=== PATIENT | male | born 1930 | race Caucasian/White ===

== ENCOUNTER → 2017-02-15 | Outpatient (CLI) | payer MEDICARE, OTHER ==
[~2017-02-15] MED LIST: 'zithromax250 MG PO; ADVAIR 100/501 E1 INH; ADVAIR 250/501 EA INH; AMOXICILLIN500 MG PO; ASPIRIN FOR CHI81 MG PO; B12,B-12,B 12500 MC1 PO; BREO ELLIPTA 11 EACH IH; BRILINTA90 M1 PO; COMBIVENT RESPIM4 GM INH; COMBIVENT1 AR1 IH; COREG25 MG PO; COREG6.25 MG PO; CRESTOR PO; CRESTOR20 MG PO; DARVOCET N 1001 TAB PO; DULCOLAX5 M1 PO; ECOTRIN81 MG PO; FLOMAX0.4 MG PO; INCRUSE EL62.5 MCG/A IH; ISOSORBIDE30 MG PO; LISINOPRIL10 M1 PO; METOPROLOL SUCC50 M1 PO; NEXIUM40 MG PO; NITROSTAT0.4 MG SL; NORCO 5-325 TA1 EACH PO; NORVASC5 MG PO; PLAVIX75 M1 PO; PROTONIX40 MG PO; PYRIDIUM200 MG PO; RANEXA500 M1 PO; SIMVASTATIN20 MG PO; TOVIAZ4 MG PO; TOVIAZ8 MG PO; TYLENOL325 M1 PO; ZOCOR10 MG PO
== END | disposition home or self-care (01) ==
LOC: RAD 09:39
DX: M25.551 Pain in right hip (principal); M25.552 Pain in left hip; M54.5 Low back pain; M25.561 Pain in right knee; Z91.81 History of falling

== ENCOUNTER → 2017-03-11 | Outpatient (CLI) | payer MEDICARE, OTHER ==
[2017-03-11 16:50] LABS: BASO % 0.5 % (0.0-1.0); EOS % 0.2 % (1.0-4.0); HEMATOCRIT 44.5 % (42.0-52.0); HEMOGLOBIN 14.3 g/dl (14.0-18.0); IG # 0.1 10*3/uL (0.0-0.1); LYMPH # 3.6 10*3/uL (1.3-4.4); LYMPH % 44.2 % (27.0-41.0); MEAN CELL VOLUME 90.3 fl (80.0-94.0); MEAN CORPUSCULAR HGB CONC 32.1 g/dl (33.0-37.0); MEAN PLATELET VOLUME 11.3 fl (9.6-12.3); MONO # 0.5 10*3/uL (0.1-1.0); MONO % 5.8 % (3.0-9.0); NEUT % 48.7 % (47.0-73.0); PLATELET COUNT AUTOMATED 191 10*3/uL (130-400); RED BLOOD COUNT 4.93 10*6/uL (4.50-5.90); WHITE BLOOD COUNT 8.2 10*3/uL (4.8-10.8)
[2017-03-11 17:06] LABS: HEMOGLOBIN A1c 6.4 % (4.8-5.6)
[2017-03-11 17:09] LABS: ALBUMIN 3.7 gm/dl (3.1-4.5); BILIRUBIN, DIRECT 0.1 mg/dL (0.0-0.2); BILIRUBIN, TOTAL 0.3 mg/dl (0.2-1.0); POTASSIUM 4.3 mmol/L (3.5-5.1); TOTAL PROTEIN 7.3 gm/dL (6.4-8.2)
== END | disposition home or self-care (01) ==
LOC: LAB 16:31 → US 17:00
PROVIDERS: Family Medicine
DX: R10.9 Unspecified abdominal pain (principal); E11.9 Type 2 diabetes mellitus without complications; Z79.899 Other long term (current) drug therapy

== ENCOUNTER 2017-07-23 10:08 | Inpatient (IN) | payer MEDICARE, OTHER ==
[~2017-07-23] VITALS: Ht 180.3 cm; Wt 103.0 kg
--- NOTE | ~2017-07-23 | PR ---
[place], [place] PROGRESS NOTE NAME: EDWARD ARANGO UNIT #: [id number] ROOM: 422 DOCTOR: RODRIGO MENA MD BIRTHDATE: [birth year] DOS: ADDENDUM The patient was seen and examined by myself. Notes and labs were reviewed. Rhythm strips were reviewed. The patient appears to have atrial flutter/fibrillation with profound bradycardia, which indicates sick sinus syndrome. His echocardiogram was reviewed, which did not reveal any evidence of LV thrombus or any source of emboli. The possibility of stroke due to patient's atrial fibrillation is high. The patient needs to be on Coumadin versus NOACs or therapeutic to dose of Lovenox when there is no contraindication from the Neurology point of view. Fear of hemorrhagic conversion of his stroke in the acute phase. The patient, most likely, will be a candidate for pacemaker placement. A CardioNet will be considered should there be any recurrence of the profound bradycardic episode. Avoid any negative chronotropic agents for now. I will discuss this further in the morning with primary team. RODRIGO MENA MD CM:PNTRANS [id number] RODRIGO MENA MD 07/27/1747 interface
[2017-07-23 10:08] VITALS: BP 126/57
[2017-07-23 10:26] LABS: BASO % 0.2 % (0.0-1.0); HEMATOCRIT 45.4 % (42.0-52.0); HEMOGLOBIN 14.6 g/dl (14.0-18.0); LYMPH # 2.2 10*3/uL (1.3-4.4); LYMPH % 18.5 % (27.0-41.0); MEAN CELL VOLUME 89.7 fl (80.0-94.0); MEAN CORPUSCULAR HGB 28.9 pg (27.0-31.0); MEAN CORPUSCULAR HGB CONC 32.2 g/dl (33.0-37.0); MEAN PLATELET VOLUME 11.1 fl (9.6-12.3); MONO # 0.5 10*3/uL (0.1-1.0); MONO % 4.2 % (3.0-9.0); NEUT # 9.3 10*3/uL (2.3-7.9); NEUT % 76.8 % (47.0-73.0); PLATELET COUNT AUTOMATED 237 10*3/uL (130-400); RED BLOOD COUNT 5.06 10*6/uL (4.50-5.90); RED CELL DISTRI WIDTH 13.4 % (0-14.5); WHITE BLOOD COUNT 12.1 10*3/uL (4.8-10.8)
[2017-07-23 10:36] LABS: ACT PARTIAL THROMBO TIME 25.3 SECONDS (20.8-31.5); INTERNATIONAL NORM RATIO 1.1 (2.0-3.5)
[2017-07-23 10:46] LABS: ALBUMIN 3.7 gm/dl (3.1-4.5); ALKALINE PHOSPHATASE 50 U/L (45-117); BUN 22 mg/dl (7-24); CHLORIDE 104 mmol/L (98-107); CREATININE 1.33 mg/dL (0.70-1.30); LIPASE 79 U/L (73-393); SGOT/AST 10 IU/L (3-35); SGPT/ALT 13 U/L (12-78); SODIUM 139 mmol/L (136-145); TOTAL PROTEIN 7.4 gm/dL (6.4-8.2)
[2017-07-23 10:47] LABS: TROPONIN I < 0.015 ng/ml (<0.045)
[2017-07-23 11:00] VITALS: BP 114/64
--- NOTE | 2017-07-23 12:00 | NUR ---
PT WAS HELPED UP WITH 2 ASSIST. HE IS UNSTEADY ON HIS FEET AND NOT ABLE TO WALK WITHOUT HELP. HE COMPLAINS OF A HEADACHE AT THIS TIME. REMAINS ALERT. RETURNED TO BED WITH ASSIST. HE WILL BE ADMITTED,REPORT TO BE CALLED. WOUND TO RIGHT ELBOW AND FOREARM CLEANSED AND BACITRACIN,DRESSING APPLIED TO AREA. BRITTNEY DANGELO
[2017-07-23 12:30] VITALS: BP 126/77
--- NOTE | 2017-07-23 13:10 | NUR ---
A 86, admitted to , under the services of BRAULIO Arndt DO with a diagnosis of DIZZINESS,BRADYCARDIA,AC RENAL INSUFFICENCY. Chief complaint is DIZZINESS. Patient arrived via stretcher from ER. Monitor applied. Initial assessment completed. Vital signs taken and recorded. BRAULIO ARNDT DO notified of admission to the unit. Orders received. See assessment for past medical history, medications and allergies. Patient and/or family oriented to unit. [address] visitation policy reviewed. Clothing/patient valuable form completed. MAYNOR TOM
[2017-07-23 13:29] VITALS: BP 161/71
--- NOTE | 2017-07-23 13:30 | NUR ---
PHOTOS TAKEN OF RIGHT ARM
[2017-07-23] MEDS ORDERED: TOPROL XL25 MG PO (13:55)
[2017-07-23] MEDS ORDERED: TOPROL XL50 M1 PO (13:57)
[2017-07-23] MEDS ORDERED: VITAMIN D5000 UNI1 PO (14:00)
--- NOTE | 2017-07-23 14:00 | NUR ---
DAUGHTER PROVIDED MED LIST. CRISTINA CALLED PHARMACY CALLED TO VERIFIED HOME MEDS. PT GETS MAIL ORDER. SOME MEDS WERE VERIFIED. DR GEE NOTIFIED
[2017-07-23 16:00] VITALS: BP 157/66
[2017-07-23 16:27] LABS: BILIRUBIN NEGATIVE (NEGATIVE); BLOOD TRACE-INTACT (NEGATIVE); CLARITY CLEAR (CLEAR); COLOR YELLOW (YELLOW); GLUCOSE NEGATIVE (NEGATIVE); KETONE NEGATIVE (NEGATIVE); LEUKO ESTERASE NEGATIVE (NEGATIVE); NITRITE NEGATIVE (NEGATIVE); SPECIFIC GRAVITY 1.025 (1.005-1.030)
[2017-07-23 16:41] LABS: MUCOUS 1+
[2017-07-23 16:42] LABS: BACTERIA TRACE; WBC 0-2 wbc/hpf (0-5)
[2017-07-23 18:54] LABS: TROPONIN I 0.023 ng/ml (<0.045)
[2017-07-23 20:00] VITALS: BP 128/59
--- NOTE | 2017-07-23 21:00 | NUR ---
Patient resting quietly with no c/o discomfort. Respirations easy and regular. Vital signs stable. No overt distress. MAYNOR TOM R
[2017-07-24] VITALS: BP 130/58
--- NOTE | 2017-07-24 04:36 | NUR ---
Requested and medicated with [facility] at 0359 for complaints of JOHNSON and neck pain rated as an 8/10. Will continue to monitor.
[2017-07-24 05:50] LABS: BASO % 0.2 % (0.0-1.0); EOS % 0.1 % (1.0-4.0); HEMATOCRIT 40.8 % (42.0-52.0); LYMPH # 2.2 10*3/uL (1.3-4.4); LYMPH % 25.5 % (27.0-41.0); MEAN CELL VOLUME 90.3 fl (80.0-94.0); MEAN CORPUSCULAR HGB 28.8 pg (27.0-31.0); MEAN CORPUSCULAR HGB CONC 31.9 g/dl (33.0-37.0); MEAN PLATELET VOLUME 11.7 fl (9.6-12.3); MONO # 0.5 10*3/uL (0.1-1.0); MONO % 6.1 % (3.0-9.0); NEUT # 5.9 10*3/uL (2.3-7.9); NEUT % 67.6 % (47.0-73.0); PLATELET COUNT AUTOMATED 202 10*3/uL (130-400); RED BLOOD COUNT 4.52 10*6/uL (4.50-5.90); RED CELL DISTRI WIDTH 13.5 % (0-14.5); WHITE BLOOD COUNT 8.7 10*3/uL (4.8-10.8)
[2017-07-24 06:15] LABS: BUN 21 mg/dl (7-24); CHLORIDE 108 mmol/L (98-107); CREATININE 1.29 mg/dL (0.70-1.30); PHOSPHOROUS 2.6 mg/dL (2.5-4.9); POTASSIUM 3.9 mmol/L (3.5-5.1); SODIUM 139 mmol/L (136-145)
[2017-07-24 08:00] VITALS: BP 180/80
--- NOTE | 2017-07-24 08:02 | NUR ---
[place] effective to reduce pain and allow to rest quietly. Refused orthostatic vitals this am, stating I'm not ready to get up. Will continue to monitor.
[2017-07-24 08:30] VITALS: BP 163/72
[2017-07-24 12:00] VITALS: BP 158/82
--- NOTE | 2017-07-24 15:00 | NUR ---
Patient resting quietly with no c/o discomfort. Respirations easy and regular. Vital signs stable. No overt distress. MAYNOR TOM R
[2017-07-24 16:00] VITALS: BP 160/80
[2017-07-24 20:00] VITALS: BP 178/86; BP 187/86
--- NOTE | 2017-07-24 20:00 | NUR ---
ASSUMED CARE OF PATIENT. ASSESSMENT COMPLETE. RESTING IN BED. BED ALARM ON. CALL LIGHT IN REACH. WILL CONTINUE TO MONITOR.
--- NOTE | 2017-07-24 20:08 | NUR ---
MEDICATED WITH PRN NORCO FOR C/O HGEADACHE. RATES 06/16. WILL MONITOR FOR EFFECTIVENESS
--- NOTE | 2017-07-24 20:59 | NUR ---
DR ISBELL MADE AWARE OF BP 178/86. NO ORDERS RECEIVED
--- NOTE | 2017-07-24 23:39 | NUR ---
PER PATIENT, EARLIER NORCO EFFECTIVE
[2017-07-25] VITALS: BP 111/88
--- NOTE | 2017-07-25 02:00 | NUR ---
SLEEPING. RESP EASY AND NONLABORED ON ROOM AIR. NO DISTRESS NOTED. CM INTACT. CALL LIGHT IN REACH. BED ALARM ON. WILL CONTINUE TO MONITOR.
[2017-07-25 06:54] LABS: BASO % 0.4 % (0.0-1.0); EOS % 0.1 % (1.0-4.0); HEMATOCRIT 43.9 % (42.0-52.0); LYMPH # 3.8 10*3/uL (1.3-4.4); LYMPH % 39.7 % (27.0-41.0); MEAN CELL VOLUME 89.4 fl (80.0-94.0); MEAN CORPUSCULAR HGB 28.5 pg (27.0-31.0); MEAN CORPUSCULAR HGB CONC 31.9 g/dl (33.0-37.0); MEAN PLATELET VOLUME 11.6 fl (9.6-12.3); MONO # 0.6 10*3/uL (0.1-1.0); MONO % 6.7 % (3.0-9.0); NEUT % 52.7 % (47.0-73.0); PLATELET COUNT AUTOMATED 231 10*3/uL (130-400); RED BLOOD COUNT 4.91 10*6/uL (4.50-5.90); RED CELL DISTRI WIDTH 13.3 % (0-14.5); WHITE BLOOD COUNT 9.5 10*3/uL (4.8-10.8)
[2017-07-25 07:20] LABS: BUN 17 mg/dl (7-24); CHLORIDE 102 mmol/L (98-107); CREATININE 1.25 mg/dL (0.70-1.30); POTASSIUM 3.2 mmol/L (3.5-5.1); SODIUM 137 mmol/L (136-145)
[2017-07-25 08:00] VITALS: BP 140/80
--- NOTE | 2017-07-25 10:35 | NUR ---
PHYSICAL THERAPY Patient evaluated on 4, full evaluation to follow. Continue with PT as per plan of care with fall, acute debility and vertigo precautions. Will require SNF for impaired mobility in order to return to home alone at [facility]. PAtient is moderate complexity via chart review, tests and evaluation; 80698. Thank you for this referral. Stephanie Luke,PT
--- NOTE | 2017-07-25 10:59 | NUR ---
Occupational Therapy evaluation completed this date on 4 with full eval to follow. Precautions include fall risk,impulsivity and moderate complexity level 07198. Recommend OT per POC and SNF upon d/c to enable safe return home alone and independent. Thank you for this referral. Ana Luisa Albrecht OTR/L
--- NOTE | 2017-07-25 11:33 | NUR ---
Received order for snf, in to talk with patient. Provided list of skilled facilities, patient stated he has been at [facility] in [place] before and would go back there. Contacted [facility] and faxed referral. Patient requires 3 night stay can go on Tuesday07/26/17 if accepted.
[2017-07-25 12:00] VITALS: BP 170/78
--- NOTE | 2017-07-25 12:06 | NUR ---
Patient accepted to [facility] and can go tomorrow 07/26/17 if medically stable for discharge.
--- NOTE | 2017-07-25 12:57 | NUR ---
PHYSICAL THERAPY Guicho was seen this PM 1:1 for his therapy session and got to say was very grumpy with me, but does not know how weak he really is. Transfer supine/sit, sitting balance MOD A X 1. Sit/stand, standing balance MOD A X 1, gait into pt's bathroom 12' X 1, with MAX A X 1 and falling forward with his gait. Stop and start again gait. Pt was not safe with standard walker at this time. After bathroom Pt washed his hands, gait 19' X 1, with MOD/MAX A X 1, with cueing for gait, balance safety and falling forwar with this needing cues to just stop and standing balance. Pt back supine in bed, bed alarm on, treatment time 24 min. CARLOS DUFF PERSONAL VEHICLE ADVISOR.
--- NOTE | 2017-07-25 14:10 | NUR ---
EDWARD ARANGO [id number] Please refer to the physician's history and physical for past medical history, comorbid conditions, and allergies. Diagnosis: DIZZINESS Rylan Score: 20,LOW OR NO RISK WOUND DESCRIPTIONS: Location of the wound: right elbow Type of wound: skin tear Thickness: Full Size: 2.9cm x 1.9cm x 0.1cm Tunneling: none Undermining: none Sinus Tract: none Presence of Exudate: none Amount: None Color: Yellow Odor: None Periwound Skin Appearance: Normal Wound edges: approximated Pain (associated with wound): none at time of assessment How does patient state this happened? pt stated he fell on or tuesday of last week. Location of the wound: right wrist proximal Type of wound: skin tear Thickness: Partial Size: 0.5cm x 0.4cm x 0.1cm Tunneling: none Undermining: none Sinus Tract: none Presence of Exudate: serosanguineous Amount: Light Color: Red Odor: None Periwound Skin Appearance: Normal Wound edges: approximated Pain (associated with wound): none at time of assessment How does patient state this happened? pt stated he fell last or tuesday of last week Location of the wound: right wrist medial Type of wound: skin tear Thickness: Partial Size: 0.7cm x 0.7cm x 0.1cm Tunneling: none Undermining: none Sinus Tract: none Presence of Exudate: serosanguineous Amount: Light Color: Red Odor: None Periwound Skin Appearance: Normal Wound edges: approximated Pain (associated with wound): none at time of assessment How does patient state this happened? pt stated he fell last or tuesday of last week Location of the wound: right wrist distal Type of wound: skin tear Thickness: Partial Size: 1.0cm x 1.0cm x 0.1cm Tunneling: none Undermining: none Sinus Tract: none Presence of Exudate: serosanguineous Amount: Light Color: Red Odor: None Periwound Skin Appearance: Normal Wound edges: approximated Pain (associated with wound): none at time of assessment How does patient state this happened? pt stated he fell last or tuesday of last week Surface the patient is resting on: Isoflex SKIN PREVENTION RECOMMENDATION: 1. Pressure redistribution support surface as appropriate 2. Elevate heels 3. Remove boots/TEDS every shift and reapply 4. Head of bed 30 degrees as tolerated 5. Assess nutrition and hydration 6. Manage moisture 7. Avoid the use of containment devices while in bed 8. Use absorptive products on surfaces limit layers of linens on bed 9. Turn and reposition every 1-2 hours in bed and every 1 hour in chair as tolerated 10. Weight shifts every 15 minutes while up in chair 11. Offloading with pillows or device to keep heels elevated off bed 12. Monitor skin at least every shift 13. Inspect under medical devices twice a day WOUND TREATMENT RECOMMENDATIONS: skin tear guidelines right elbow nss, sureprep, versatel, therahoney cover with optifoam gentle skin tear guidelines to right wrist areas nss, sureprep, versatel, hydrogel cover with optifoam gentle.
[2017-07-25 16:00] VITALS: BP 132/61
[2017-07-25 20:00] VITALS: BP 121/62
--- NOTE | 2017-07-25 20:00 | NUR ---
ASSUMED CARE OF PATIENT. ASSESSMENT COMPLETE. SITTING UP IN CHAIR. CALL LIGHT IN REACH. WILL CONTINUE TO MONITOR.
--- NOTE | 2017-07-25 20:23 | NUR ---
DR SALMERON CALLED WITH CRITICAL CT HEAD RESULTS. CALLED AND MADE DR ISBELL AWARE OF RESULTS AND THAT THEY RECOMMENDED AN MRI. NO ORDERS RECEIVED AT THIS TIME.
--- NOTE | 2017-07-25 20:50 | NUR ---
DR LESTER UP TO FLOOR TO SEE PATIENT
[2017-07-26] VITALS: BP 120/76
--- NOTE | 2017-07-26 00:04 | NUR ---
ATIVAN WAS GIVEN ORDERED. PT SHOWING SMALL PEROIDS OF CONFUSION AND INCONTINENCE. BED WAS CHANGED AND BRIEF WAS PUT ON THE PT.
--- NOTE | 2017-07-26 00:55 | NUR ---
DR ISBELL MADE AWARE THAT PT HR WENT INTO THE 30'S WITH SOME PAUSES. HR CURRENTLY NSR WITH BB 74 PER CM. HE STATES TO CALL HIM BACK IF HR DROPS AGAIN.
--- NOTE | 2017-07-26 01:18 | NUR ---
MEDICATED WITH PRN RESTORIL FOR HELP TO SLEEP
[2017-07-26 06:43] LABS: BUN 12 mg/dl (7-24); CHLORIDE 106 mmol/L (98-107); CREATININE 1.23 mg/dL (0.70-1.30); POTASSIUM 3.6 mmol/L (3.5-5.1); SODIUM 138 mmol/L (136-145)
[2017-07-26 08:00] VITALS: BP 132/70
--- NOTE | 2017-07-26 08:38 | NUR ---
PHYSICAL THERAPY Guicho seen this AM for his therapy session and said no, later. CARLOS DUFF LOGGING ENGINEER.
--- NOTE | 2017-07-26 09:50 | NUR ---
PATIENT'S DAUGHTER CALLED IN AND UPDATED ON PATIENT'S STATUS. SAID TO CALL HER IF ANYTHING CHANGES OR IF HE IS TO POSSIBLY GET TRANSFERRED SOMEWHERE ELSE MADDIE (DAUGHTER) [phone]
--- NOTE | 2017-07-26 10:33 | NUR ---
PHYSICAL THERAPY Back this AM to treat Pt and he was off the floor down for his MRI. CARLOS DUFF INSTRUCTOR SUBSTITUTE COSMETOLOGY.
--- NOTE | 2017-07-26 11:49 | NUR ---
VANNESSA IN [facility] WAS NOTIFIED OF CONSULT FOR BRADYCARDIA EITH PAUSES. STATED CHRIS IS ON RIGHT NOW, SHE WILL LET HIM KNOW OF THE CONSULT.
[2017-07-26 12:00] VITALS: BP 164/79
--- NOTE | 2017-07-26 12:22 | NUR ---
PHYSICAL THERAPY Pt seen this PM for his therapy session and back from his MRI. Transfer supine/sit MIN A X 1, sitting balance CGA X 1, sit/stand and standing balance MOD A X 1, up on standard walker. Gait total 42' X 1, with MOD DRIVER RECRUITER X 1, cueing for gait safety, and Pt's balance and did not lean forwards as much today balance improving but slow. Pt back supine in bed after short rest act quad sets, heel slides and ankle pumps with verbal cueing for each Ex to pt's tolerance. Pt not as grumpy this afternoon as yesterday. CARLOS DUFF AUTO BODY TECHNICIAN.
--- NOTE | 2017-07-26 12:32 | NUR ---
As discussed in this mornings hudjosé, Dr. alcantara felt discussing with this patients son possible in patient rehab for stroke victims. Attempted to call the son twice today with no return calls as of yet. Will follow. Although, patient has been accepted to [facility] and can go today if medically stable and if son does not agree with in patient rehab.
--- NOTE | 2017-07-26 12:45 | NUR ---
Patients daughter Cecile Patel called and stated that she and her brother would like to go with Dr Duque recommendation and have [facility] Conctacting facility and faxing referral.
--- NOTE | 2017-07-26 13:13 | NUR ---
[facility]ax[facility] Reviewing paperwork, will have rep visit with patient tomorrow afternoon. Waiting on acceptance.
[2017-07-26 16:00] VITALS: BP 165/85
[2017-07-26 20:00] VITALS: BP 148/78
[2017-07-27] VITALS: BP 192/81
[2017-07-27 08:00] VITALS: BP 170/90
--- NOTE | 2017-07-27 08:10 | NUR ---
PT. AWAKE, ALERT AND ORIENTED X 3. PT. STANDING WITH URINAL AT BEDSIDE, ASSISTED, PUT BACK INTO BED WITH BED ALARM ON. PT. CURRENTLY DENIES SOB, CP. CALL LIGHT WITHIN REACH, BED IN LOWEST POSITION, WHEELS LOCKED. SEE SHIFT ASSESSMENT.
--- NOTE | 2017-07-27 08:25 | NUR ---
PHYSICAL THERAPY Guicho was seen this AM 1:1 for his therapy session. Pt said NO Therapy, will check back later. Pt's BP was 170/90. CARLOS DUFF PROP MAKER.
[2017-07-27] MEDS ORDERED: NORVASC5 MG PO (10:47)
[2017-07-27] MEDS ORDERED: IPRATROPIU0.2 MG/1 M NEB (10:47)
[2017-07-27] MEDS ORDERED: ATORVASTATIN CA80 M1 PO (10:47)
[2017-07-27] MEDS ORDERED: ENOXAPARIN40 MG/0.2 SC (10:47)
--- NOTE | 2017-07-27 11:07 | NUR ---
PHYSICAL THERAPY Back to see Guicho and Pt getting his meds at this time. Pt's nurse said that Guicho is being D/C today. CARLOS DUFF TILE PROFESSIONAL.
[2017-07-27 11:33] VITALS: BP 167/88
[2017-07-27 16:00] VITALS: BP 170/88
--- NOTE | 2017-07-27 19:59 | NUR ---
TROY NOTIFIED OF PATIENT GETTING READY TO LEAVE FOR [facility]. NOTIFIED OF ROOM NUMBER.
--- NOTE | 2017-07-27 20:15 | NUR ---
PT TRANSPORTED VIA [facility] AT THIS TIME. HEART MONITOR REMOVED.
--- NOTE | 2017-07-28 07:47 | NUR ---
PHYSICAL THERAPY CO-SIGN I approve of the Phyical Therapy notes written above. ALEX PACHECO PT
== END 2017-07-27 20:15 | disposition short-term general hospital (02) | DRG 64 ==
LOC: ED 10:08 → 4E 12:26 → EDHOLD 12:26 → 4E 12:37
PROVIDERS: Family Medicine; Nurse Practitioner Family; Student in an Organized Health Care Education/Training Program; ADMIT Internal Medicine
DX: I63.9 Cerebral infarction, unspecified (principal); N17.0 Acute kidney failure with tubular necrosis; G93.6 Cerebral edema; E11.22 Type 2 diabetes mellitus with diabetic chronic kidney disease; E11.51 Type 2 diabetes mellitus with diabetic peripheral angiopathy without gangrene; I49.5 Sick sinus syndrome; E11.65 Type 2 diabetes mellitus with hyperglycemia; I25.10 Atherosclerotic heart disease of native coronary artery without angina pectoris; K21.9 Gastro-esophageal reflux disease without esophagitis; J44.9 Chronic obstructive pulmonary disease, unspecified; N40.1 Benign prostatic hyperplasia with lower urinary tract symptoms; R39.12 Poor urinary stream; L71.1 Rhinophyma; Z96.1 Presence of intraocular lens; I12.9 Hypertensive chronic kidney disease with stage 1 through stage 4 chronic kidney disease, or unspecified chronic kidney disease; N18.3 Chronic kidney disease, stage 3 (moderate); I48.91 Unspecified atrial fibrillation; I95.1 Orthostatic hypotension; W18.39XA Other fall on same level, initial encounter; Y93.89 Activity, other specified; Y99.8 Other external cause status; I25.2 Old myocardial infarction; Z88.8 Allergy status to other drugs, medicaments and biological substances; Z79.82 Long term (current) use of aspirin; Z79.899 Other long term (current) drug therapy; Z90.49 Acquired absence of other specified parts of digestive tract; Z98.41 Cataract extraction status, right eye; Z82.3 Family history of stroke; Y92.002 Bathroom of unspecified non-institutional (private) residence as the place of occurrence of the external cause